=== PATIENT | male | born 1935 | race Caucasian/White ===

== ENCOUNTER → 2020-11-07 | Outpatient (CLI) | payer MEDICARE, OTHER ==
--- NOTE | 2020-11-07 16:23 | RADIOLOGY REPORT (SQ) ---
EXAM DESCRIPTION: VENOUS UNILATERAL LOWER IMAGES COMPLETED DATE/TIME: 11/07/2020 4:15 pm REASON FOR STUDY: RLE PAIN R22.41 LOCALIZED SWELLING, MASS AND LUMP, RIGHT LOWER LIMB COMPARISON: None. TECHNIQUE: Dynamic and static davila scale and color images acquired of the right leg venous system. S elected spectral images acquired with additional compression and augmentation maneuvers. The contrala teral common femoral vein and saphenofemoral junction were also imaged. Images stored on PACS. LIMITATIONS: None. FINDINGS: COMMON FEMORAL: Normal phasicity, compression and augmentation. No visualized echogenic ma terial on davila scale. No defects on color images. FEMORAL: Normal compression and augmentation. No visualized echogenic material on davila scale. No defe cts on color images. POPLITEAL: Normal compression, augmentation. No visualized echogenic material on davila scale. No defec ts on color images. CALF VESSELS: Normal compression, augmentation. No visualized echogenic material on davila scale. No de fects on color images. GSV and SSV: Normal compression, augmentation. No visualized echogenic material on davila scale. No def ects on color images. ANY DEEP VENOUS INSUFFICIENCY: Not evaluated. ANY EVIDENCE OF POPLITEAL CYST: Complex 3.8 x 2.7 x 1.7 cm fluid collection in the right popliteal fo ssa. Most likely complex popliteal cyst with septations and possible hemorrhage. Further evaluation with MR is recommended as clinically indicated. OTHER: No other significant finding. CONTRALATERAL COMMON FEMORAL VEIN AND SAPHENOFEMORAL JUNCTION: Normal phasicity, compression and augmentation. No visualized echogenic material on davila scale. No de fects on color images. IMPRESSION: 1. No evidence of DVT or SVT. 2. Complex 3.8 x 2.8 x 1.7 cm lesion in the popliteal fossa most likely popliteal cyst. TECHNICAL DOCUMENTATION: JOB ID: [id number] 2010 [employer]- All Rights Reserved Reading location - IP/workstation name: [email or web address]
== END ==
LOC: SP 15:27
PROVIDERS: ATTEND Orthopaedic Surgery Sports Medicine
DX: M71.21 Synovial cyst of popliteal space [Baker], right knee (principal)
CPT/HCPCS: 93971